=== PATIENT | female | born 1975 | race Two or more races ===

== ENCOUNTER 2016-10-18 18:27 | Emergency (ER) | payer SELFPAY ==
[~2016-10-18] VITALS: Ht 165.1 cm; Wt 99.3 kg
[2016-10-18] MEDS ORDERED: ASPIRIN 325 MG TABLET PO ONE (19:30)
[2016-10-18] MEDS ORDERED: KETOROLAC TROMETHAMINE 30 MG/ML SYRINGE. IV ONE (19:30)
--- NOTE | 2016-10-18 19:31 | PHYS DOC ---
Past Medical History Past Medical History: Other Additional Past Medical Histor: ulcers Past Surgical History: Tubal ligation Alcohol Use: Rarely Drug Use: None Adult General Chief Complaint Chief Complaint: CHEST WALL PAIN HPI HPI 41-year-old female who's had significant left upper chest pain that does radiate across her chest and is reproducible worse with deep breathing and cough for the last day. Patient does states she's had a cough the last few weeks. She denies any significant shortness of breath. She states movement makes the pain worse. She denies any current smoking history but does state she smoked in the past. 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 Currently she rates her chest pain a 7 out of 10 localized primarily to the left upper chest. She denies any history of premature cardiac in her family. Review of Systems Review of Systems Constitutional: Denies fever or chills [] Eyes: Denies change in visual acuity, redness, or eye pain [] HENT: Denies nasal congestion or sore throat [] Respiratory: Denies cough or shortness of breath [] Cardiovascular: No additional information not addressed in HPI [] GI: Denies abdominal pain, nausea, vomiting, bloody stools or diarrhea [] : Denies dysuria or hematuria [] Musculoskeletal: Denies back pain or joint pain [] Integument: Denies rash or skin lesions [] Neurologic: Denies headache, focal weakness or sensory changes [] Endocrine: Denies polyuria or polydipsia [] Current Medications Current Medications Current Medications Medications (Trade) Dose Ordered Sig/Doc Start Time Stop Time Status Last Admin Dose Admin Aspirin (Mara Aspirin) 325 mg 1X ONCE 10/18/16 19:30 10/18/16 19:31 DC 10/18/16 19:46 325 MG Ketorolac Tromethamine (Toradol) 30 mg 1X ONCE 10/18/16 19:30 10/18/16 19:31 DC 10/18/16 19:46 30 MG Lorazepam (Ativan) 1 mg 1X ONCE 10/18/16 19:45 10/18/16 19:46 DC 10/18/16 19:47 1 MG Allergies Allergies Allergies Coded Allergies Type Severity Reaction Last Updated Verified No Known Drug Allergies 04/11/15 No Physical Exam Physical Exam Constitutional: Well developed, well nourished, no acute distress, non-toxic appearance. [] HENT: Normocephalic, atraumatic, bilateral external ears normal, oropharynx moist, no oral exudates, nose normal. [] Eyes: PERRLA, EOMI, conjunctiva normal, no discharge. [] Neck: Normal range of motion, no tenderness, supple, no stridor. [] Cardiovascular:Heart rate regular rhythm, no murmur [] Lungs & Thorax: Bilateral breath sounds clear to auscultation [] Abdomen: Bowel sounds normal, soft, no tenderness, no masses, no pulsatile masses. [] Skin: Warm, dry, no erythema, no rash. [] Back: No tenderness, no CVA tenderness. [] Extremities: No tenderness, no cyanosis, no clubbing, ROM intact, no edema. [] Neurologic: Alert and oriented X 3, normal motor function, normal sensory function, no focal deficits noted. [] Psychologic: Affect normal, judgement normal, mood normal. [] Current Patient Data Vital Signs Vital Signs Date Time Temp Pulse Resp B/P Pulse Ox O2 Delivery O2 Flow Rate FiO2 10/18/16 20:00 80 21 125/78 94 Room Air 10/18/16 18:30 98.1 98.1 Lab Values Laboratory Tests Test 10/18/16 19:23 POC Troponin I 0.00ng/ml (<0.08) EKG EKG EKG as interpreted by me shows a sinus rhythm with a rate of 90 bpm. There is a leftward axis. There are no acute ischemic findings on this EKG. Radiology/Procedures Radiology/Procedures Portable one view of the chest as interpreted by me does not reveal an acute cardiopulmonary process. Course & Med Decision Making Course & Med Decision Making Pertinent Labs and Imaging studies reviewed. (See chart for details) This is a 41-year-old female with 7 out of 10 chest pain that is reproducible upon my exam is likely having chest wall pain that is inflammatory in etiology due to her recent cough. I will get a set of crack enzymes. At this time her EKG and chest x-ray are unremarkable. I counseled that she will have to follow closely with her primary care doctor in the next several days for her symptoms. Patient has a REX score of 1 for history of hypertension and smoking. She is a low risk patient in my view and will be safe to follow up with a negative set of cardiac enzymes. Set of cardiac enzymes is negative. Upon my final reassessment, the patient feels much improved and is willing to follow closely with her primary care doctor for her chest pain. She was given strict precautions to return if she develops any worsening of her pain or if it returns or she develops any shortness of breath. Dragon Disclaimer Dragon Disclaimer This electronic medical record was generated, in whole or in part, using a voice recognition dictation system. Departure Departure Impression: Primary Impression: Chest wall pain Disposition: HOME, SELF-CARE Admitting Physician: Other Condition: STABLE Referrals: ELI LOPES MD (PCP) Patient Instructions: Chest Pain (Nonspecific), [id number] Additional Instructions: Please follow up with your primary doctor in the next 2-3 days for your chest pain. Take anti-inflammatories as prescribed. Return to the ER if you develop any worsening of your pain. Scripts Ibuprofen 800 Mg [id number] Mg PO PRN Q6HRS PRN INFLAMMATION #20 TAB Prov:FAUSTO CULVER DO 10/18/16 FAUSTO CULVER DO Oct 18, 2016 19:31
[2016-10-18] MEDS ORDERED: LORAZEPAM 2 MG/ML VIAL IV ONE (19:45)
[2016-10-18] MEDS ORDERED: IBUP-1060 PO (20:28)
[2016-10-18 20:53] VITALS: BP 122/70
--- NOTE | 2016-10-19 06:35 | EKG ---
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
--- NOTE | 2016-10-19 08:16 | RAD ---
Portable chest, 10/18/2016: History: Left-sided chest pain Comparison is made to a study from 11/22/2014. The heart appears to be within normal limits in size. The pulmonary vascularity is normal. No pulmonary infiltrates are seen. There is no evidence of pleural fluid. IMPRESSION: No acute cardiopulmonary abnormality is detected.
== END 2016-10-18 20:55 | disposition home or self-care (01) ==
LOC: ER 18:27
DX: R07.89 Other chest pain (principal); R05 Cough; I10 Essential (primary) hypertension; Z87.891 Personal history of nicotine dependence
CPT/HCPCS: 71010; 84484; 93005; 96374; 96375; 99284; J1885; J2060

== ENCOUNTER 2017-10-27 19:23 | Emergency (ER) | payer SELFPAY | END 2017-10-27 20:11 | disposition home or self-care (01) | LOC: ER 19:23 | DX: S63.502A Unspecified sprain of left wrist, initial encounter (principal); W01.0XXA Fall on same level from slipping, tripping and stumbling without subsequent striking against object, initial encounter; Y93.89 Activity, other specified; Y92.89 Other specified places as the place of occurrence of the external cause; Y99.8 Other external cause status | CPT/HCPCS: 29125; 73110; 99284 ==

== ENCOUNTER 2021-08-13 21:01 | Emergency (ER) | payer SELFPAY ==
[~2021-08-13] VITALS: Ht 167.6 cm; Wt 103.0 kg
[~2021-08-13 21:01] MED LIST: IBUP-1060 PO
[2021-08-13 22:21] LABS: BILIRUBIN,URINE NEGATIVE (NEG); CLARITY,URINE CLEAR; COLOR,URINE YELLOW; NITRITE,URINE NEGATIVE (NEG); PH,URINE 6.5 (<5.0-8.0); PROTEIN,URINE NEGATIVE (NEG-TRACE)
[2021-08-13 22:24] LABS: U PREG PATIENT NEGATIVE (NEG)
[2021-08-13 22:28] LABS: BACTERIA,URINE 0 /HPF (0-FEW); WBC,URINE OCC /HPF (0-4)
[2021-08-13] MEDS ORDERED: KETOROLAC 30 MG/ML VIAL. IVP ONE (22:30)
[2021-08-13] MEDS ORDERED: ONDANSETRON PF 4 MG/2 ML VIAL. IVP ONE (22:30)
[2021-08-13 22:37] LABS: BASO # 0.1 x10^3/uL (0.0-0.2); BASO % 1 % (0-3); EOS # 0.2 x10^3/uL (0.0-0.7); EOS % 4 % (0-3); HEMATOCRIT 24.3 % (36.0-47.0); LYMPH # 1.3 x10^3/uL (1.0-4.8); LYMPH % 26 % (24-48); MEAN CORPUSCULAR HEMOGLOBIN 25 pg (25-35); MEAN CORPUSCULAR HGB CONC 33 g/dL (31-37); MEAN CORPUSCULAR VOLUME 76 fL (79-100); MONO # 0.4 x10^3/uL (0.0-1.1); MONO % 7 % (0-9); NEUT # 3.1 x10^3/uL (1.8-7.7); NEUT % 61 % (31-73); PLATELET COUNT 323 x10^3/uL (140-400); RED BLOOD COUNT 3.18 x10^6/uL (3.50-5.40); RED CELL DISTRIBUTION WIDTH 16.4 % (11.5-14.5)
[2021-08-13 23:18] LABS: CALCIUM 8.1 mg/dL (8.5-10.1); CREATININE 0.8 mg/dL (0.6-1.0); GFR 77.2; POTASSIUM 3.9 mmol/L (3.5-5.1)
[2021-08-13 23:23] LABS: ALBUMIN 3.3 g/dL (3.4-5.0); ALBUMIN/GLOBULIN RATIO 0.9 (1.0-1.7); TOTAL BILIRUBIN 0.2 mg/dL (0.2-1.0); TOTAL PROTEIN 6.8 g/dL (6.4-8.2)
[2021-08-13 23:30] VITALS: BP 118/59
--- NOTE | 2021-08-13 23:43 | PHYS DOC ---
Past Medical History Past Medical History: Other Additional Past Medical Histor: ulcers Past Surgical History: Cholecystectomy Smoking Status: Never Smoker Alcohol Use: None Drug Use: None General Adult EDM: Chief Complaint: VAGINAL BLEEDING HPI: HPI: Patient is a 45 year old female past medical history of dysfunctional uterine bleeding presents with a chief complaint of vaginal bleeding. Patient states she has had bleeding for 2 weeks. . Patient states she feels at least 1-2 pads per hour. Patient with known history of anemia and vaginal bleeding. Patient has been worked up and evaluated at [facility]. Patient previously required transfusion of blood due to her vaginal bleeding. Patient states she feels short of breath and at times dizzy. She denies any associated abdominal pelvic discomfort. She is not having any chest pain. Patient states she wanted to be evaluated because she is concerned that she might need a blood transfusion. Review of Systems: Review of Systems: Constitutional: Denies fever or chills. [] Eyes: Denies change in visual acuity. [] HENT: Denies nasal congestion or sore throat. [] Respiratory: Denies cough or shortness of breath. [] Cardiovascular: Denies chest pain or edema. [] GI: Denies abdominal pain, nausea, vomiting, bloody stools or diarrhea. [] : Denies dysuria. [] Musculoskeletal: Denies back pain or joint pain. [] Integument: Denies rash. [] Neurologic: Denies headache, focal weakness or sensory changes. [] Endocrine: Denies polyuria or polydipsia. [] Lymphatic: Denies swollen glands. [] Psychiatric: Denies depression or anxiety. [] Heart Score: C/O Chest Pain: N/A Risk Factors: Risk Factors: DM, Current or recent (<one month) smoker, HTN, HLP, family history of CAD, obesity. Risk Scores: Score 0 - 3: 2.5% MACE over next 6 weeks - Discharge Home Score 4 - 6: 20.3% MACE over next 6 weeks - Admit for Clinical Observation Score 7 - 10: 72.7% MACE over next 6 weeks - Early Invasive Strategies Current Medications: Current Medications Medications (Trade) Dose Ordered Sig/Doc Start Time Stop Time Status Last Admin Dose Admin Ketorolac Tromethamine (Toradol 30mg Vial) 30 mg 1X ONCE 08/13/21 22:30 08/13/21 22:31 DC 08/13/21 22:49 30 MG Ondansetron HCl (Zofran) 4 mg 1X ONCE 08/13/21 22:30 08/13/21 22:31 DC 08/13/21 22:49 4 MG Allergies: Allergies: Allergies Coded Allergies Type Severity Reaction Last Updated Verified No Known Drug Allergies 04/11/15 No Physical Exam: PE: Constitutional: Well developed, well nourished, no acute distress, non-toxic appearance. [] HENT: Normocephalic, atraumatic, bilateral external ears normal, oropharynx moist, no oral exudates, nose normal. [] Eyes: PERRLA, EOMI, conjunctiva normal, no discharge. [] Neck: Normal range of motion, no tenderness, supple, no stridor. [] Cardiovascular:Heart rate regular rhythm, no murmur [] Lungs & Thorax: Bilateral breath sounds clear to auscultation [] Abdomen: Bowel sounds normal, soft, no tenderness, no masses, no pulsatile masses. [] Skin: Warm, dry, no erythema, no rash. [] Back: No tenderness, no CVA tenderness. [] Extremities: No tenderness, no cyanosis, no clubbing, ROM intact, no edema. [] Neurologic: Alert and oriented X 3, normal motor function, normal sensory function, no focal deficits noted. [] Psychologic: Affect normal, judgement normal, mood normal. [] Current Patient Data: Labs: Laboratory Tests Test 08/13/21 22:11 08/13/21 22:23 Urine Collection Type Unknown Urine Color Yellow Urine Clarity Clear Urine pH 6.5 (<5.0-8.0) Urine Specific [place] 1.025 (1.000-1.030) Urine Protein Negative mg/dL (NEG-TRACE) Urine Glucose (UA) Negative mg/dL (NEG) Urine Ketones (Stick) Negative mg/dL (NEG) Urine Blood Large (NEG) Urine Nitrite Negative (NEG) Urine Bilirubin Negative (NEG) Urine Urobilinogen Dipstick 1.0 mg/dL (0.2 mg/dL) Urine Leukocyte Esterase Negative (NEG) Urine RBC 6-10 /HPF (0-2) Urine WBC Occ /HPF (0-4) Urine Squamous Epithelial Cells Few /LPF Urine Bacteria 0 /HPF (0-FEW) Urine Mucus Slight /LPF Urine Test Negative (NEG) White Blood Count 5.0 x10^3/uL (4.0-11.0) Red Blood Count 3.18 x10^6/uL (3.50-5.40) L Hemoglobin 8.0 g/dL (12.0-15.5) L Hematocrit 24.3 % (36.0-47.0) L Mean Corpuscular Volume 76 fL (79-100) L Mean Corpuscular Hemoglobin 25 pg (25-35) Mean Corpuscular Hemoglobin Concent 33 g/dL (31-37) Red Cell Distribution Width 16.4 % (11.5-14.5) H Platelet Count 323 x10^3/uL (140-400) Neutrophils (%) (Auto) 61 % (31-73) Lymphocytes (%) (Auto) 26 % (24-48) Monocytes (%) (Auto) 7 % (0-9) Eosinophils (%) (Auto) 4 % (0-3) H Basophils (%) (Auto) 1 % (0-3) Neutrophils # (Auto) 3.1 x10^3/uL (1.8-7.7) Lymphocytes # (Auto) 1.3 x10^3/uL (1.0-4.8) Monocytes # (Auto) 0.4 x10^3/uL (0.0-1.1) Eosinophils # (Auto) 0.2 x10^3/uL (0.0-0.7) Basophils # (Auto) 0.1 x10^3/uL (0.0-0.2) Sodium Level 136 mmol/L (136-145) Potassium Level 3.9 mmol/L (3.5-5.1) Chloride Level 102 mmol/L (98-107) Carbon Dioxide Level 28 mmol/L (21-32) Anion Gap 6 (6-14) Blood Urea Nitrogen 13 mg/dL (7-20) Creatinine 0.8 mg/dL (0.6-1.0) Estimated GFR (Cockcroft-Gault) 77.2 BUN/Creatinine Ratio 16 (6-20) Glucose Level 100 mg/dL (70-99) H Calcium Level 8.1 mg/dL (8.5-10.1) L Total Bilirubin 0.2 mg/dL (0.2-1.0) Aspartate Amino Transferase (AST) 14 U/L (15-37) L Alanine Aminotransferase (ALT) 12 U/L (14-59) L Alkaline Phosphatase 92 U/L (46-116) Total Protein 6.8 g/dL (6.4-8.2) Albumin 3.3 g/dL (3.4-5.0) L Albumin/Globulin Ratio 0.9 (1.0-1.7) L Laboratory Tests 08/13/21 22:23 Laboratory Tests 08/13/21 22:23 Vital Signs: Vital Signs Date Time Temp Pulse Resp B/P (MAP) Pulse Ox O2 Delivery O2 Flow Rate FiO2 08/13/21 22:30 85 19 114/69 (84) 99 08/13/21 22:04 83.0 83.0 EKG: EKG: [] Radiology/Procedures: Radiology/Procedures: [] Course & Med Decision Making: Course & Med Decision Making Pertinent Labs and Imaging studies reviewed. (See chart for details) [] Patient was evaluated for chief complaint. Work-up consisted of laboratory analysis. Patient's hemoglobin was 8. Review of past labs show this to be around patient's baseline. At this time I feel patient is safe for discharge. 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 Doroteo Disclaimer: Doroteo Disclaimer: This electronic medical record was generated, in whole or in part, using a voice recognition dictation system. Departure Departure Impression: Primary Impression: Vaginal bleeding Disposition: HOME / SELF CARE / HOMELESS Condition: STABLE Referrals: ELI LOPES MD (PCP) Patient Instructions: Uterine Bleeding, Dysfunctional KYLE BASURTO I DO Aug 13, 2021 23:43
== END 2021-08-14 00:02 | disposition home or self-care (01) ==
LOC: ER 21:01
DX: N93.9 Abnormal uterine and vaginal bleeding, unspecified (principal); Z90.49 Acquired absence of other specified parts of digestive tract
CPT/HCPCS: 36415; 80053; 81001; 81025; 85025; 96374; 96375; 99284; J1885; J2405